=== PATIENT | male | born 1985 | race Two or more races ===

== ENCOUNTER → 2022-04-18 | Outpatient (CLI) | payer OTHER ==
--- NOTE | 2022-04-18 10:44 | XR ---
Limited cervical spine history: M79.2 Nerve pain 3 views of the cervical spine No comparisons There is spondylosis present at C5-6 with associated loss of disc height. Prevertebral soft tissues a re normal. Cervical vertebral bodies show preserved height and alignment, bone mineralization. [place] id view is limited. Slight thoracic spinal curvature is suspected. IMPRESSION: Degenerative disc disease.
== END | disposition home or self-care (01) ==
LOC: RADXRMAIN 09:36
PROVIDERS: ATTEND Internal Medicine
DX: M47.812 Spondylosis without myelopathy or radiculopathy, cervical region (principal); M50.30 Other cervical disc degeneration, unspecified cervical region; M79.2 Neuralgia and neuritis, unspecified
CPT/HCPCS: 72040

== ENCOUNTER → 2024-09-16 | Outpatient (CLI) | payer OTHER ==
--- NOTE | 2024-09-16 09:12 | MM ---
Reason for Exam: Clinical finding. Baseline mammogram. Indicated Problems: Lump or thickening of the right side for 2 Month(s). Lump or thickening of the left side for 1 Week(s). Pain of the right side for 2 Month(s). Prior Study Comparison: Patient's first Mammogram. Tissue Density: The breasts are almost entirely fatty. Findings: Analyzed By CAD. Focal flame-shaped subareolar density on the right. Trace on the left. Overlying palpable markers. No other significant mass, suspicious microcalcification, or other discrete abnormality is seen. Overall Assessment: Incomplete: need additional imaging evaluation, BI-RAD 0 Management: Diagnostic Breast Ultrasound of both breasts. [facility], , 09/16/2024 9:09 AM. Electronically signed and approved by: Jean Eldridge M.D. Radiologist
--- NOTE | 2024-09-16 09:43 | USB ---
Findings: Bilateral subareolar breast ultrasounds. On the right, there is focal subareolar gynecomastia measuring 2.1 cm. Trace on the left measuring 1.0 cm. No other solid or cystic lesion. Overall Assessment: Benign, BI-RAD 2 Management: Clinical Management of the right breast. for the symptomatic gynecomastia. Correlate for possible causes in this patient. Results were given to the patient verbally at the time of exam. [facility], , 09/16/2024 9:40 AM. Electronically signed and approved by: Jean Eldridge M.D. Radiologist
== END | disposition home or self-care (01) ==
LOC: RADMAMWWP 08:00
PROVIDERS: ATTEND Family Medicine
DX: N63.10 Unspecified lump in the right breast, unspecified quadrant (principal); R92.313 Mammographic fatty tissue density, bilateral breasts
CPT/HCPCS: 77062; 77066